=== PATIENT | male | born 1955 | race Asian ===

== ENCOUNTER 2024-08-03 07:10 | Emergency (ER) | payer MEDICARE, MEDICAID ==
[~2024-08-03] VITALS: Ht 180.3 cm; Wt 81.6 kg
[2024-08-03 07:22] VITALS: PULSE 82; RESP 20; TEMP 97.7; O2SAT 99
[2024-08-03 07:33] VITALS: O2SAT 99
[2024-08-03 07:44] VITALS: O2SAT 99
[2024-08-03] MEDS: LIDOCAINE MPF 1% 10 MG/ML VIAL INJ ONE (08:04)
== END 2024-08-03 09:05 | disposition home or self-care (01) ==
LOC: MED 07:10
DX: S01.112A Laceration without foreign body of left eyelid and periocular area, initial encounter (principal); W22.8XXA Striking against or struck by other objects, initial encounter; Y93.89 Activity, other specified; Y92.89 Other specified places as the place of occurrence of the external cause; Y99.8 Other external cause status
CPT/HCPCS: 12011; 90471; 90715; 99283; J2003